=== PATIENT | female | born 1960 | race American Indian/Alaskan Native ===

== ENCOUNTER 2017-07-13 14:30 | Outpatient (CLI) | payer BC ==
--- NOTE | 2017-07-14 15:07 | Mammography Report ---
BILATERAL DIGITAL SCREENING MAMMOGRAM with CAD: 07/13/17 14:30:00 CLINICAL: Routine screening. COMPARISON:None available. FINDINGS: The breasts are heterogeneously dense, which may obscure small masses. Bilateral asymmetries require additional imaging.No architectural distortion or suspicious calcifications. IMPRESSION: Bilateral asymmetries requiring further workup. BI-RADS CATEGORY: 0 -- Additional Imaging Evaluation Required RECOMMENDATION: Recall for left exaggerated CC and ML views, bilateral spot compression views and bilateral breast ultrasound if needed. ACR BI-RADS MAMMOGRAPHIC CODES: 0 = Needs additional imaging evaluation; 1 = Negative; 2 = Benign; 3 = Probably benign; 4 = Suspicious; 5 = Malignant; 6 = Known biopsy-proven malignancy COMMENT: 1. Dense breast tissue, i.e., adenosis, fibrocystic changes, etc., may obscure an underlying neoplasm. 2. Approximately 10% of cancers are not detected with mammography. 3. A negative mammography report should not delay biopsy if a clinically suspicious mass is present. COMMENT: Patient follow-up letters are generated via our [employer] application.
== END 2017-07-13 14:31 | disposition home or self-care (01) ==
LOC: MAMMO 14:30
PROVIDERS: ATTEND Internal Medicine
DX: Z12.31 Encounter for screening mammogram for malignant neoplasm of breast (principal)
CPT/HCPCS: 77067

== ENCOUNTER 2017-08-17 11:40 | Outpatient (CLI) | payer BC ==
--- NOTE | 2017-08-17 13:19 | Mammography Report ---
Bilateral mammogram: Call back for asymmetries. Additional compression imaging of the left breast would appear to indicate the asymmetry is normal fibroglandular tissue. The asymmetry on the right side is no longer apparent. Impression: Benign findings. Recommendation: Annual mammogram followup. BI-RADS CATEGORY: 2 = Benign ACR BI-RADS MAMMOGRAPHIC CODES: 0 = Needs additional imaging evaluation; 1 = Negative; 2 = Benign; 3 = Probably benign; 4 = Suspicious; 5 = Malignant; 6 = Known biopsy-proven malignancy COMMENT: 1. Dense breast tissue, i.e., adenosis, fibrocystic changes, etc., may obscure an underlying neoplasm. 2. Approximately 10% of cancers are not detected with mammography. 3. A negative mammography report should not delay biopsy if a clinically suspicious mass is present.
== END 2017-08-17 11:41 | disposition home or self-care (01) ==
LOC: MAMMO 11:40
PROVIDERS: ATTEND Internal Medicine
DX: R92.8 Other abnormal and inconclusive findings on diagnostic imaging of breast (principal)
CPT/HCPCS: 77066

== ENCOUNTER 2018-06-09 13:08 | Outpatient (CLI) | payer BC ==
--- NOTE | 2018-06-09 15:34 | XRay Report ---
METASTATIC SURVEY:06/09/18 CLINICAL: Bony joint lesions. FINDINGS: Lateral skull: Negative Cervical spine: Negative Thoracic spine: Negative Lumbar spine: Negative Chest and ribs: A tiny lucent lesion in the lateral left ninth rib. Bilateral humerus: Several tiny bilateral lucent lesions. Pelvis and hips: Several tiny lucent lesions of the right iliac bone. Bilateral femur: Several subtle lucent lesions of bilateral proximal femur. IMPRESSION: Small lucent lesions involving the left ninth rib, bilateral humeri, bilateral proximal femora and the right iliac bone which are suspicious for lytic metastases or multiple myeloma.
== END 2018-06-09 13:09 | disposition home or self-care (01) ==
LOC: XRAY 13:08
PROVIDERS: ATTEND Internal Medicine Hematology & Oncology
DX: A66.6 Bone and joint lesions of yaws (principal); I11.0 Hypertensive heart disease with heart failure; I50.9 Heart failure, unspecified; K21.9 Gastro-esophageal reflux disease without esophagitis
CPT/HCPCS: 77074

== ENCOUNTER 2018-06-22 09:04 | Outpatient (CLI) | payer BC, MEDICARE ==
--- NOTE | 2018-06-22 14:55 | Nuclear Medicine Report ---
BONE SCAN: History: The other intra-abdominal and pelvic swelling, mass and lump. No history of cancer per the patient. Pelvic pain. After injection of isotope, gamma camera imaging of the bony system was done. There is a normal uptake of isotope throughout the bony structures without areas of significantly increased or decreased uptake. Normal uptake in the urinary system is seen. No abnormal uptake corresponding to the tiny lytic appearing lesions seen on metastatic bone survey dated 06/09/18. IMPRESSION: Normal bone scan.
== END 2018-06-22 09:05 | disposition home or self-care (01) ==
LOC: NM 09:04
PROVIDERS: ATTEND Internal Medicine Hematology & Oncology
DX: C50.511 Malignant neoplasm of lower-outer quadrant of right female breast (principal); R19.09 Other intra-abdominal and pelvic swelling, mass and lump; I11.0 Hypertensive heart disease with heart failure; I50.9 Heart failure, unspecified
CPT/HCPCS: 78306; A9503

== ENCOUNTER 2018-06-25 08:36 | Day surgery (SDC) | payer BC, MEDICARE ==
[2018-06-25 09:30] LABS: Basophils # (Auto) 0.1 K/mm3 (0.0-0.1); Basophils % (Auto) 1.1 % (0.0-1.8); Eosinophils # (Auto) 0.2 K/mm3 (0.0-0.4); Eosinophils % (Auto) 3.4 % (0.0-4.3); Hemoglobin 13.4 gm/dl (10.1-14.3); Lymphocytes # (Auto) 1.2 K/mm3 (1.2-5.4); Lymphocytes % (Auto) 24.7 % (13.4-35.0); Mean Corpuscular HGB Conc 34 % (30-34); Mean Corpuscular Volume 97 fl (79-97); Monocytes # (Auto) 0.5 K/mm3 (0.0-0.8); Monocytes % (Auto) 10.2 % (0.0-7.3); Platelet Count 303 K/mm3 (140-440); Red Blood Count 4.01 M/mm3 (3.65-5.03)
[2018-06-25 09:41] LABS: INR 0.88 (0.87-1.13)
[2018-06-25] MEDS ORDERED: VERSED IV ONE (11:00)
[2018-06-25] MEDS ORDERED: SUBLIMAZE IV ONE (11:00)
--- NOTE | 2018-06-25 13:43 | Cat Scan Report ---
CT BIOPSY PELVIS/HIP RIGHT HISTORY: Pelvic mass, right iliac wing mass. DESCRIPTION OF PROCEDURE: Informed consent was obtained. Sterile technique was utilized. Conscious sedation was accomplished with Versed and fentanyl. The patient was sedated for 20 minutes. Intra-observer time of 15 minutes. Independent cardiorespiratory monitoring by RN. Using CT guidance, a 17-gauge introducer needle was advanced to the central portion of a lytic right iliac wing mass measuring 9 x 4 cm. 3 separate 18-gauge core biopsies were obtained. Pathology was present and deemed the samples adequate. The patient tolerated the procedure without difficulty. IMPRESSION: Successful CT-guided biopsy of the right iliac wing mass.
[2018-06-25 14:58] VITALS: BP 131/81
== END 2018-06-25 14:47 | disposition home or self-care (01) ==
LOC: CATHLABREC 08:36
PROVIDERS: ATTEND Internal Medicine Hematology & Oncology
DX: M89.8X8 Other specified disorders of bone, other site (principal); R19.09 Other intra-abdominal and pelvic swelling, mass and lump; I11.0 Hypertensive heart disease with heart failure; I50.9 Heart failure, unspecified; Z95.0 Presence of cardiac pacemaker; Z90.710 Acquired absence of both cervix and uterus; Z98.891 History of uterine scar from previous surgery; Z80.3 Family history of malignant neoplasm of breast; Z80.0 Family history of malignant neoplasm of digestive organs; Z98.890 Other specified postprocedural states; Z79.899 Other long term (current) drug therapy; Z87.891 Personal history of nicotine dependence
CPT/HCPCS: 20220; 36415; 77012; 85025; 85610; 85730; 88173; 88184; 88185; 88307; 88333; 88341; 88342; J2250; J3010; 88305

== ENCOUNTER 2018-08-18 09:41 | Outpatient (CLI) | payer BC, MEDICARE ==
--- NOTE | 2018-08-19 09:13 | Mammography Report ---
BILATERALDIGITAL SCREENING MAMMOGRAM WITH CAD INDICATION: Routine screening mammography. TECHNIQUE: Digital bilateral 2D mammography was obtained in the craniocaudal and mediolateral obliq ue projections. This examination was interpreted with the benefit of Computer-Aided Detection analysi s. COMPARISON: 08/17/2017 FINDINGS: Breast Density: The breasts are heterogeneously dense, which may obscure small masses. There is no evidence of mass, suspicious calcifications or architectural distortion in either breast . A pacemaker obscures a portion of the left upper breast on the MLO view. IMPRESSION: No mammographic evidence of malignancy. BI-RADS Category 2: Benign. No mammographic evidence of malignancy. Recommend routine screening ma mmography in one year. A "normal" or negative report should not discourage follow up or biopsy of a clinically significant f inding. A written summary of these findings will be mailed to the patient. The patient will be entered into a mammography reporting system which will generate a reminder letter for the patient's next appointmen t at the appropriate interval. The [employer] recommends yearly mammograms starting at age 40 and continuing as l ruben as a woman is in good health. Breast MRI is recommended for women with an approximate 20-25% or greater lifetime risk of breast cancer, including women with a strong family history of breast or ova dot cancer or who have been treated for Hodgkin's disease. Signer Name: Chong Loya MD Signed: 08/19/2018 9:09 AM Workstation Name: [id number]
== END 2018-08-18 09:42 | disposition home or self-care (01) ==
LOC: MAMMO 09:41
PROVIDERS: ATTEND Internal Medicine
DX: Z12.31 Encounter for screening mammogram for malignant neoplasm of breast (principal); I11.0 Hypertensive heart disease with heart failure; I50.9 Heart failure, unspecified; Z90.710 Acquired absence of both cervix and uterus
CPT/HCPCS: 77067

== ENCOUNTER 2020-09-19 09:35 | Outpatient (CLI) | payer BC, OTHER ==
--- NOTE | 2020-09-19 10:58 | Mammography Report ---
DIGITAL SCREENING MAMMOGRAM WITH CAD, 09/19/2020 CLINICAL INFORMATION / INDICATION: Routine screening mammography. SCRN MAMMO TECHNIQUE: Digital bilateral 2D mammography was obtained in the craniocaudal and mediolateral obliqu e projections. This examination was interpreted with the benefit of Computer-Aided Detection analysis . COMPARISON: 07/13/2017 through 09/07/2019. FINDINGS: Breast Density: There are scattered areas of fibroglandular density. No dominant mass, suspicious calcifications, or architectural distortion in either breast. A pacing generator overlies the left axilla. IMPRESSION: No mammographic evidence of malignancy. Follow up recommendation: Routine yearly BI-RADS Category 2: Benign. A "normal" or negative report should not discourage follow up or biopsy of a clinically significant f inding. A written summary of these findings will be mailed to the patient. The patient will be entered into a mammography reporting system which will generate a reminder letter for the patient's next appointmen t at the appropriate interval. The [employer] recommends yearly mammograms starting at age 40 and continuing as l ruben as a woman is in good health. Breast MRI is recommended for women with an approximate 20-25% or greater lifetime risk of breast cancer, including women with a strong family history of breast or ova dot cancer or who have been treated for Hodgkin's disease. Signer Name: Jim Matos MD Signed: 09/19/2020 10:54 AM Workstation Name: [id number]
== END 2020-09-19 09:36 | disposition home or self-care (01) ==
LOC: MAMMO 09:35
PROVIDERS: ATTEND Internal Medicine
DX: Z12.31 Encounter for screening mammogram for malignant neoplasm of breast (principal)
CPT/HCPCS: 77067